=== PATIENT | female | born 1990 | race Caucasian/White ===

== ENCOUNTER 2016-11-29 10:05 | Emergency (ER) | payer BC ==
[~2016-11-29] VITALS: Ht 160 cm; Wt 62.2 kg
[~2016-11-29 10:05] MED LIST: PRENTAB26 PO
[2016-11-29 10:16] VITALS: TEMP 37; Ht 160 cm; Wt 62.2 kg
[2016-11-29] MEDS ORDERED: AMOX875T PO (11:02)
[2016-11-29 11:11] LABS: BASO % 0.3 %; BASO ABS # 0.02 K/uL (0-0.2); COMPLETE YES; EOS % 1.1 %; HEMATOCRIT 38.5 % (37-47); IG% 0.1 %; LYMPH % 27.8 %; LYMPH ABS # 2.04 K/uL (1.2-3.4); MEAN CELL VOLUME 92.1 fL (80-100); MEAN CORPUSCULAR HEMOGLOBIN 31.6 pg (25-34); MEAN CORPUSCULAR HGB CONC 34.3 g/dl (32-36); MEAN PLATELET VOLUME 10.5 fL (7.4-10.4); MONO % 4.2 %; NEUT % 66.5 %; PLATELET COUNT 261 K/uL (130-400); RED BLOOD COUNT 4.18 M/uL (4.2-5.4); WHITE BLOOD COUNT 7.35 K/uL (4.8-10.8)
[2016-11-29 11:19] LABS: PROTHROMBIN TIME (PATIENT) 10.8 SECONDS (9.0-12.0)
--- NOTE | 2016-11-29 11:26 | DIAGNOSTIC IMAGING REPORT ---
CHEST 2 VIEWS ROUTINE CLINICAL HISTORY: SOB, chest pain dyspnea COMPARISON STUDY: No previous studies for comparison. FINDINGS: The bones soft tissues and hemidiaphragms are normal. The cardiomediastinal silhouette is normal. The lungs are clear. The pulmonary vasculature is normal. IMPRESSION: Negative chest. Electronically signed by: Jose Mancini M.D. 11/29/2016 11:24 AM Dictated Date/Time: 11/29/2016 11:24 AM
[2016-11-29 11:36] LABS: ALT/SGPT 23 U/L (12-78); AST/SGOT 15 U/L (15-37); BLOOD UREA NITROGEN 12 mg/dl (7-18); BUN/CREATININE RATIO 15.1 (10-20); CALCIUM 8.5 mg/dl (8.5-10.1); CARBON DIOXIDE 26 mmol/L (21-32); CHLORIDE 106 mmol/L (98-107); CREATININE 0.78 mg/dl (0.60-1.20); GLUCOSE 112 mg/dl (70-99); POTASSIUM 3.5 mmol/L (3.5-5.1); SODIUM 141 mmol/L (136-145)
[2016-11-29 11:41] LABS: ALKALINE PHOSPHATASE 30 U/L (45-117)
--- NOTE | 2016-11-29 11:42 | DIAGNOSTIC IMAGING REPORT ---
Venous Doppler left leg LEFT VENOUS DOPP LOWER EXT UNILAT CLINICAL HISTORY: L thigh/leg pain - eval possible DVT pain. Edema. TECHNIQUE: Venous Doppler COMPARISON STUDY: None FINDINGS: Normal study IMPRESSION: Normal study Electronically signed by: Jose Mancini M.D. 11/29/2016 11:40 AM Dictated Date/Time: 11/29/2016 11:40 AM
[2016-11-29 11:47] VITALS: O2SAT 100
[2016-11-29] MEDS ORDERED: AZITTAB PO (12:26)
[2016-11-29 12:37] VITALS: BP 113/69; PULSE 84; O2SAT 98
--- NOTE | 2016-11-29 16:32 | EMERGENCY ROOM VISIT NOTE ---
History First contact with patient: 10:21 Chief Complaint: CHEST PAIN Stated Complaint: LEG, CHEST PAIN, SOB W/ACTIVITY Nursing Triage Summary: "Started to have leg pain in my left thigh. It started yesterday afternoon." Last night she developed chest pain and shortness of breath. She relates that she was at her physcian on Wednesday and her physician was concerned about her heart rate. Takes control. History of Present Illness The patient is a 26 year old female who presents to the Emergency Room with complaints of shortness of breath, chest tightness and left anterior thigh pain. The patient reports that she developed sinus and ear symptoms, along with shortness of breath, early this past week. She was seen by her PCP on , and provided a prescription for amoxicillin. She reports that the symptoms not improved. She denies any significant cough, back pain, abdominal pain, diarrhea or urinary symptoms. She reports that her thigh pain started yesterday afternoon. She does not recall injuring the leg. It is worse when she goes up and down steps. She was sent to the emergency department at the recommendation of her PCP if she had any persistent shortness of breath or chest pain. She rates her overall discomfort a 4 out of 10. Review of Systems HEENT: Denies dizziness, visual problems, hearing loss, tinnitus. Denies difficulty swallowing or oral lesions. PULMONARY: Denies significant cough, sputum production or hemoptysis. Otherwise see history of present illness with complaint of shortness of breath. CARDIOVASCULAR: Denies palpitations, dyspnea on exertion, orthopnea or peripheral edema. GASTROINTESTINAL: Denies diarrhea, constipation, nausea, vomiting, or abdominal pain. GENITOURINARY: Denies dysuria, frequency, urgency or nocturia. NEUROLOGIC: Denies history of epilepsy, CVA, TIA or chronic headaches. MUSCULOSKELETAL: Denies history of joint tenderness/swelling. SKIN: Denies rashes or lesions. PSYCHIATRIC: Denies history of depression or mental illness. HEMATOLOGIC: The patient denies any prior history of pulmonary emboli or deep vein thromboses. ENDOCRINE: Denies history of diabetes or thyroid disorders. Past Medical/Surgical History Medical Problems: (1) Hx Of Breast Malignancy Surgical Problems: (1) No history of previous surgery Family History FH: hypertension Social History Smoking Status: Never Smoker Alcohol Use: none Marital Status: in relationship Housing Status: lives with family, lives with significant other Occupation Status: employed Current/Historical Medications Scheduled Amoxicillin & Pot Clavulanate (Augmentin 875-125 mg), 1 TAB PO BID Azithromycin (Zithromax Z-Jessica), 0 PO UD Control Pills ( Control Pills), 1 TAB PO DAILY Allergies Coded Allergies: No Known Allergies (Unverified , 11/29/16) Physical Exam Vital Signs Date Time Temp Pulse Resp B/P Pulse Ox O2 Delivery O2 Flow Rate FiO2 11/29/16 12:37 84 16 113/69 98 11/29/16 11:48 84 11/29/16 11:48 79 20 125/80 98 Room Air 11/29/16 11:47 100 Room Air 11/29/16 11:15 99 Room Air 11/29/16 10:16 37.0 84 20 144/88 98 Room Air Pain Rating (0-10): 4.0 Physical Exam CONSTITUTIONAL: Healthy and well nourished. Alert and oriented X 3 with positive affect. Patient does not appear in any acute distress. HEENT: Normocephalic, atraumatic. Pupils equal, round and reactive. Ears and nares are clear. No scleral icterus or conjunctival pallor. NECK: Full active range of motion without discomfort. No JVD or carotid bruits. RESPIRATORY: Clear to auscultation bilaterally with no wheezing, crackles, rhonchi or stridor. CARDIOVASCULAR: Regular rate and rhythm with no murmurs, rubs or gallops. GASTROINTESTINAL: Bowel sounds present in all quadrants. Soft and nontender to palpation. No obvious hepatosplenomegaly. Negative CVA tenderness. MUSCULOSKELETAL: Examination shows mild tenderness to palpation of the anterior thigh. No obvious edema or ecchymosis noted. Negative logroll. Negative straight leg raise. Ankle plantar/dorsiflexion strength is 5 out of 5 and symmetric bilaterally. Pedal pulses are intact. INTEGUMENTARY: No rash or other significant dermatologic conditions noted. NEUROLOGIC: Left lower extremity is sensory intact. Medical Decision & Procedures ER Provider Diagnostic Interpretation: My interpretation of an ECG shows a normal sinus rhythm of [address] elevation. 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 My interpretation of a two-view chest x-ray does not show any consolidations, pneumothorax or cardiomegaly. Radiologist report is as follows: CHEST 2 VIEWS ROUTINE CLINICAL HISTORY: SOB, chest pain dyspnea COMPARISON STUDY: No previous studies for comparison. FINDINGS: The bones soft tissues and hemidiaphragms are normal. The cardiomediastinal silhouette is normal. The lungs are clear. The pulmonary vasculature is normal. IMPRESSION: Negative chest. A left lower extremity ultrasound does not show any evidence for pain thrombosis. Radiologist report is as follows: Venous Doppler left leg LEFT VENOUS DOPP LOWER EXT UNILAT CLINICAL HISTORY: L thigh/leg pain - eval possible DVT pain. Edema. TECHNIQUE: Venous Doppler COMPARISON STUDY: None FINDINGS: Normal study IMPRESSION: Normal study Laboratory Results 11/29/16 10:55 Red Blood Count 4.18, Mean Corpuscular Volume 92.1, Mean Corpuscular Hemoglobin 31.6, Mean Corpuscular Hemoglobin Concent 34.3, Mean Platelet Volume 10.5, Neutrophils (%) (Auto) 66.5, Lymphocytes (%) (Auto) 27.8, Monocytes (%) (Auto) 4.2, Eosinophils (%) (Auto) 1.1, Basophils (%) (Auto) 0.3, Neutrophils # (Auto) 4.89, Lymphocytes # (Auto) 2.04, Monocytes # (Auto) 0.31, Eosinophils # (Auto) 0.08, Basophils # (Auto) 0.02 11/29/16 10:55 Test 11/29/16 10:55 White Blood Count 7.35 K/uL (4.8-10.8) Red Blood Count 4.18 M/uL (4.2-5.4) Hemoglobin 13.2 g/dL (12.0-16.0) Hematocrit 38.5 % (37-47) Mean Corpuscular Volume 92.1 fL (80-100) Mean Corpuscular Hemoglobin 31.6 pg (25-34) Mean Corpuscular Hemoglobin Concent 34.3 g/dl (32-36) Platelet Count 261 K/uL (130-400) Mean Platelet Volume 10.5 fL (7.4-10.4) Neutrophils (%) (Auto) 66.5 % Lymphocytes (%) (Auto) 27.8 % Monocytes (%) (Auto) 4.2 % Eosinophils (%) (Auto) 1.1 % Basophils (%) (Auto) 0.3 % Neutrophils # (Auto) 4.89 K/uL (1.4-6.5) Lymphocytes # (Auto) 2.04 K/uL (1.2-3.4) Monocytes # (Auto) 0.31 K/uL (0.11-0.59) Eosinophils # (Auto) 0.08 K/uL (0-0.5) Basophils # (Auto) 0.02 K/uL (0-0.2) RDW Standard Deviation 40.0 fL (36.4-46.3) RDW Coefficient of Variation 11.8 % (11.5-14.5) Immature Granulocyte % (Auto) 0.1 % Immature Granulocyte # (Auto) 0.01 K/uL (0.00-0.02) Prothrombin Time 10.8 SECONDS (9.0-12.0) Prothromb Time International Ratio 1.0 (0.9-1.1) Activated Partial Thromboplast Time 25.6 SECONDS (21.0-31.0) Partial Thromboplastin Ratio 1.0 D-Dimer 310 ug/L FEU (0-500) Anion Gap 9.0 mmol/L (3-11) Est Creatinine Clear Calc Drug Dose 91.2 ml/min Estimated GFR () 122.5 Estimated GFR (Non- 105.7 BUN/Creatinine Ratio 15.1 (10-20) Calcium Level 8.5 mg/dl (8.5-10.1) Total Bilirubin 0.3 mg/dl (0.2-1) Direct Bilirubin < 0.1 mg/dl (0-0.2) Aspartate Amino Transf (AST/SGOT) 15 U/L (15-37) Alanine Aminotransferase (ALT/SGPT) 23 U/L (12-78) Alkaline Phosphatase 30 U/L (45-117) Total Creatine Kinase 84 U/L (26-192) Troponin I < 0.015 ng/ml (0-0.045) Total Protein 7.3 gm/dl (6.4-8.2) Albumin 3.4 gm/dl (3.4-5.0) Lipase 129 U/L (73-393) ED Course Patient history and physical exam were performed. Nurse's notes were reviewed. The patient does not appear in any acute distress on exam. IV access was established, and labs were drawn. An ECG, two-view chest x-ray and left lower extremity venous ultrasound did not show any acute findings. Review of labs showed a normal d-dimer and troponin. Electrolytes and CBC are also normal. The case was also discussed with Dr. Reinoso, ED attending physician, who agrees with workup and plan of care. The patient was also advised of her normal workup at this point. She was instructed to follow-up closely with her family doctor within the next 2-3 days for reevaluation. Return to the emergency department for any progressively worsening symptoms. Because the patient did have preceding respiratory symptoms with current shortness of breath , I did elect to treat her with a prescription for Zithromax. The patient was happy with plan of care, voiced understanding of all discharge instructions, and denied any pain or shortness of breath at the time of discharge. Medical Decision The patient presents to the emergency department with complaint of shortness of breath and left 5 pain. Her family doctor recommended that she come to the emergency department for evaluation of a possible DVT or pulmonary embolus. Her workup today is not suggestive of these conditions. She has a normal d- dimer and troponin. Venous ultrasound of the left lower extremity was normal. She has no abnormal labs today. Chest x-ray does not show any evidence for consolidation. Because the patient did have preceding upper respiratory symptoms consistent with a viral upper respiratory infection, I did elect to cover her with Zithromax antibiotics. I do feel that the patient is stable for outpatient evaluation and follow-up. She was advised to return for any worsening symptoms. Because the venous ultrasound of the left lower extremity was normal, I suspect a musculotendinous injury Impression Primary Impression: Shortness of breath Additional Impression: Left thigh pain Departure Information Dispostion Home / Self-Care Condition GOOD Prescriptions Azithromycin (ZITHROMAX Z-JESSICA) 250 Mg Tab 0 PO UD, #1 PKT 2 TABS DAY 1, THEN 1 TAB DAILY FOR 4 DAYS Prov: Jose Armando Fuller PA 11/29/16 Forms HOME CARE DOCUMENTATION FORM, IMPORTANT VISIT INFORMATION Patient Instructions My [facility] Additional Instructions Take Zithromax antibiotics as prescribed. Follow-up with your family doctor for recheck in 2-3 days. Return to the emergency department for any progressively worsening symptoms. Problem Qualifiers
[2016-12-02] MEDS ORDERED: BCPILLS PO (11:02)
== END 2016-11-29 12:42 | disposition home or self-care (01) ==
LOC: C.EDB 10:06 → C.EDC 12:42
DX: R06.02 Shortness of breath (principal); M79.652 Pain in left thigh; Z85.3 Personal history of malignant neoplasm of breast

== ENCOUNTER → 2016-12-01 | Outpatient (CLI) | payer BC ==
[~2016-12-01] MED LIST changes: +AMOX875T PO; +AZITTAB PO; +BCPILLS PO; +CYCL5TAB PO; +PRED20TA2 PO; -PRENTAB26 PO
--- NOTE | 2016-12-01 14:36 | DIAGNOSTIC IMAGING REPORT ---
LEFT FEMUR 3 VIEWS CLINICAL HISTORY: Left thigh pain. No reported history of trauma. FINDINGS: AP, frog-leg, and lateral views of the left femur are obtained. No prior studies are available for comparison at the time of dictation. The skeletal structures are well mineralized. There is no radiographic evidence of left femoral fracture. The visualized left bony pelvis appears intact. The hip and knee joints appear maintained. The overlying soft tissues are within normal limits. Calcified phleboliths are present in the left hemipelvis. IMPRESSION: Unremarkable radiographic assessment of the left femur. Electronically signed by: Trace Noguera M.D. 12/01/2016 2:34 PM Dictated Date/Time: 12/01/2016 2:33 PM
[2016-12-01 15:25] LABS: C-REACTIVE PROTEIN < 0.29 mg/dl (0-0.29)
== END | disposition home or self-care (01) ==
LOC: C.RAD 14:01
PROVIDERS: ATTEND Student in an Organized Health Care Education/Training Program
DX: M79.605 Pain in left leg (principal)

== ENCOUNTER 2016-12-02 14:37 | Emergency (ER) | payer BC ==
[~2016-12-02] VITALS: Ht 160 cm; Wt 62.9 kg
[~2016-12-02 14:37] MED LIST changes: -CYCL5TAB PO; -PRED20TA2 PO
[2016-12-02 14:41] VITALS: TEMP 36.9; Ht 160 cm; Wt 62.9 kg
--- NOTE | 2016-12-02 15:14 | EMERGENCY ROOM VISIT NOTE ---
History Report prepared by Janina: Stan Ludwig Under the Supervision of: Dr. Laura Hercules M.D. First contact with patient: 14:44 Chief Complaint: NEURO SYMPTOMS Stated Complaint: LEG PAIN, NUMBNESS, TINGLING History of Present Illness The patient is a 26 year old female who presents to the Emergency Room with complaints of persistent neuro symptoms that started around a week ago. She notes that she was here 3 days ago with left leg pain and shortness of breath, and she had testing for blood clots, and nothing was found. The patient has continued to have left leg pain, so she went to the [facility] walk-in clinic yesterday, and they did not know what was happening. The patient was sent for additional blood work and an x-ray of her upper left leg, all of which were negative. She has an ultrasound ordered for tomorrow morning. She describes the leg pain as a "tooth ache". She was climbing up a pickup truck today, and she noticed tingling and numbness from her left knee down. The patient also notes a lump the size of her hand in her left thigh. She tried to go to work this morning, but she says her left leg pain worsened. She then had an episode of dizziness and lightheadedness, in addition to sweating. She felt like she couldn't breathe, and she continues to feel like she has to yawn constantly. The patient denies any back pain or loss of control of her bladder or bowels. She does take control pills. The patient does not smoke. Source of History: patient Onset: Around a week ago Position: other (global - neuro symptoms) Timing: other (persistent) Associated Symptoms: + SOB, + diaphoresis, No back pain Note: Associated symptoms: Left leg pain, tingling/numbness from left knee down, lump size of hand in left thigh, episode of dizziness/lightheadedness. Denies loss of control of bladder or bowels. Review of Systems See HPI for pertinent positives & negatives. A total of 10 systems reviewed and were otherwise negative. Past Medical & Surgical Medical Problems: (1) Hx Of Breast Malignancy Surgical Problems: (1) No history of previous surgery Family History FH: hypertension Social History Smoking Status: Never Smoker Alcohol Use: none Marital Status: in relationship Housing Status: lives with family, lives with significant other Occupation Status: employed Current/Historical Medications Scheduled Azithromycin (Zithromax Z-Rico), 0 PO UD Control Pills ( Control Pills), 1 TAB PO DAILY Prednisone (Prednisone Tab), 40 MG PO DAILY Scheduled PRN Cyclobenzaprine Hcl (Flexeril), 5 MG PO TID PRN for Muscle Spasms Allergies Coded Allergies: No Known Allergies (Unverified , 11/29/16) Physical Exam Vital Signs Date Time Temp Pulse Resp B/P Pulse Ox O2 Delivery O2 Flow Rate FiO2 12/02/16 19:46 91 18 116/67 95 12/02/16 19:11 77 18 131/83 97 Room Air 12/02/16 17:55 80 16 127/73 12/02/16 17:22 76 12/02/16 17:13 77 18 114/74 100 Room Air 12/02/16 15:45 70 18 120/85 100 Room Air 12/02/16 14:41 36.9 91 18 117/75 99 Room Air Physical Exam Vital signs reviewed. General: Well-appearing 26 year old female, in no significant distress. HEENT: No scleral icterus, PERRLA, neck supple. Atraumatic. Cardiovascular: Regular rate and rhythm, no extra sounds. Pulmonary: Clear to auscultation bilaterally, normal work of breathing. Abdomen: Soft, nontender, nondistended, positive bowel sounds. Musculoskeletal: Atraumatic, no peripheral edema. Neurologic: Patient awake alert and oriented x 3, full strength in all 4 extremities. Cranial nerves 2 through 12 grossly intact. Some discomfort with left straight leg raise. +2 DTR patellar bilaterally Skin: Warm, dry, no rash Medical Decision & Procedures ER Provider Diagnostic Interpretation: X-ray results as stated below per my interpretation and radiologist interpretation. Other radiology results as stated below per my review and radiologist interpretation: L-SPINE MIN 4 VIEWS ROUTINE CLINICAL HISTORY: lumbar radiculopathy COMPARISON STUDY: No previous studies for comparison. FINDINGS: There are 5 lumbar type vertebral bodies present. No acute fractures or subluxations are visualized. There is a 36 mm sclerotic lesion involving the right medial iliac bone. IMPRESSION: 1. No fractures or subluxations identified 2. 36 mm sclerotic density within the right medial iliac bone Electronically signed by: Tristen Tobar M.D. 12/02/2016 4:23 PM Dictated Date/Time: 12/02/2016 4:22 PM MRI LUMBAR SPINE W/O CONTRAST CLINICAL HISTORY: LLE pain, radiculopathy. LEFT LOWER EXTREMITY RADICULOPATHY. TECHNIQUE: Sagittal and axial T1, T2 and STIR images were obtained. COMPARISON STUDY: Conventional radiographic study dated December 02, 2016 OBSERVATIONS: There is a sclerotic lesion within the right medial iliac bone, likely representing a bone island. L1-2: No disc protrusions or extrusions. No evidence of spinal canal or neural foraminal compromise. L2-3: No disc protrusions or extrusions. No evidence of spinal canal or neural foraminal compromise. L3-4: No disc protrusions or extrusions. No evidence of spinal canal or neural foraminal compromise. L4-5: No disc protrusions or extrusions. No evidence of spinal canal or neural foraminal compromise. L5-S1: No disc protrusions or extrusions. No evidence of spinal canal or neural foraminal compromise. The conus medullaris and cauda equina appear normal. IMPRESSION: 1. No disc herniations identified 2. No evidence of spinal or foraminal stenosis. Electronically signed by: Tristen Tobar M.D. 12/02/2016 7:19 PM Dictated Date/Time: 12/02/2016 7:15 PM Laboratory Results 12/02/16 15:30 Red Blood Count 4.03, Mean Corpuscular Volume 92.3, Mean Corpuscular Hemoglobin 32.0, Mean Corpuscular Hemoglobin Concent 34.7, Mean Platelet Volume 10.7, Neutrophils (%) (Auto) 56.7, Lymphocytes (%) (Auto) 34.9, Monocytes (%) (Auto) 6.9, Eosinophils (%) (Auto) 1.0, Basophils (%) (Auto) 0.2, Neutrophils # (Auto) 5.52, Lymphocytes # (Auto) 3.40, Monocytes # (Auto) 0.67, Eosinophils # (Auto) 0.10, Basophils # (Auto) 0.02 12/02/16 15:30 Test 12/02/16 15:30 12/02/16 15:45 White Blood Count 9.74 K/uL (4.8-10.8) Red Blood Count 4.03 M/uL (4.2-5.4) Hemoglobin 12.9 g/dL (12.0-16.0) Hematocrit 37.2 % (37-47) Mean Corpuscular Volume 92.3 fL (80-100) Mean Corpuscular Hemoglobin 32.0 pg (25-34) Mean Corpuscular Hemoglobin Concent 34.7 g/dl (32-36) Platelet Count 305 K/uL (130-400) Mean Platelet Volume 10.7 fL (7.4-10.4) Neutrophils (%) (Auto) 56.7 % Lymphocytes (%) (Auto) 34.9 % Monocytes (%) (Auto) 6.9 % Eosinophils (%) (Auto) 1.0 % Basophils (%) (Auto) 0.2 % Neutrophils # (Auto) 5.52 K/uL (1.4-6.5) Lymphocytes # (Auto) 3.40 K/uL (1.2-3.4) Monocytes # (Auto) 0.67 K/uL (0.11-0.59) Eosinophils # (Auto) 0.10 K/uL (0-0.5) Basophils # (Auto) 0.02 K/uL (0-0.2) RDW Standard Deviation 40.6 fL (36.4-46.3) RDW Coefficient of Variation 11.9 % (11.5-14.5) Immature Granulocyte % (Auto) 0.3 % Immature Granulocyte # (Auto) 0.03 K/uL (0.00-0.02) Anion Gap 10.0 mmol/L (3-11) Est Creatinine Clear Calc Drug Dose 114.7 ml/min Estimated GFR () 141.6 Estimated GFR (Non- 122.2 BUN/Creatinine Ratio 17.6 (10-20) Calcium Level 8.7 mg/dl (8.5-10.1) Urine Color YELLOW Urine Appearance CLOUDY (CLEAR) Urine pH 7.5 (4.5-7.5) Urine Specific [place] 1.022 (1.000-1.030) Urine Protein NEG (NEG) Urine Glucose (UA) NEG (NEG) Urine Ketones NEG (NEG) Urine Occult Blood NEG (NEG) Urine Nitrite NEG (NEG) Urine Bilirubin NEG (NEG) Urine Urobilinogen NEG (NEG) Urine Leukocyte Esterase SMALL (NEG) Urine WBC (Auto) 10-30 /hpf (0-5) Urine RBC (Auto) 0-4 /hpf (0-4) Urine Hyaline Casts (Auto) 5-10 /lpf (0-5) Urine Epithelial Cells (Auto) >30 /lpf (0-5) Urine Bacteria (Auto) 1+ (NEG) Urine Renal Epithelial Cells /lpf (0-5) Date/Time Source Procedure Growth Status 12/02/16 15:45 Urine , Clean Catch Urine Culture - Final Gardnerella-Like Bacilli Complete Laboratory results per my review. Medications Administered Medications (Trade) Dose Ordered Sig/Salima Route Start Time Stop Time Status Last Admin Dose Admin Methylprednisolone Sodium Succinate (Solu-Medrol IV) 125 mg NOW STAT IV 12/02/16 15:17 12/02/16 15:19 DC 12/02/16 15:40 125 MG Morphine Sulfate (MoRPHine SULFATE INJ) 2 mg NOW STAT IV 12/02/16 15:17 12/02/16 15:20 DC 12/02/16 15:41 2 MG Cyclobenzaprine HCl (Flexeril Tab) 5 mg NOW STAT PO 12/02/16 15:17 12/02/16 15:20 DC 12/02/16 15:41 5 MG ED Course 1450: Past medical records reviewed. The patient was evaluated in room B12B. A complete history and physical examination was performed. 1517: Ordered Flexeril Tab 5 mg PO, Morphine Sulfate Inj 2 mg IV, Solu-Medrol IV 125 mg IV. 1805: I reevaluated the patient and she is going to get her MRI. 3: I reevaluated the patient and she is resting comfortably. The patient verbally expressed understanding and agreement of the treatment plan. The patient will be discharged Medical Decision Differential diagnoses include: lumbar radiculopathy, DVT, muscular strain, hematoma, knee sprain, bony fracture. This pt was evaluated and appeared to be in no distress. IV access was obtained and lab work was drawn. Lumbar XR were performed and are negative. Pt has now been in the ED twice and to her PCP for evaluation. The pain continues in the Left thigh and XR femur and dopplers are negative for DVT. MRI lumbar spine was performed and is essentially negative for acute pathology. Pt was medicated with IV solu-medral, morphine and flexeril in the ED. She was d/c with prednisone and flexeril. She will f.u with PCP this week and return to the ED for worsening of symptoms or any medical concerns. Impression Primary Impression: Left lumbar radiculopathy Scribe Attestation The scribe's documentation has been prepared under my direction and personally reviewed by me in its entirety. I confirm that the note above accurately reflects all work, treatment, procedures, and medical decision making performed by me. Departure Information Dispostion Home / Self-Care Prescriptions Cyclobenzaprine Hcl (FLEXERIL) 5 Mg Tab 5 MG PO TID Y for Muscle Spasms, #21 TAB Prov: Laura Hercules M.D. 12/02/16 Prednisone (Prednisone Tab) 20 Mg Tab 40 MG PO DAILY for 4 Days, #8 TAB Prov: Laura Hercules M.D. 12/02/16 Referrals Itzel Hodges MD (PCP) Forms HOME CARE DOCUMENTATION FORM, IMPORTANT VISIT INFORMATION, WORK / SCHOOL INSTRUCTIONS Patient Instructions My [facility] Additional Instructions Diagnosis: Left lumbar radiculopathy Prednisone 40 mg daily for 4 more days. Flexeril 5 mg 3 times daily as needed. Tylenol 650 mg every 6 hours as needed for pain. Warm compresses and gentle stretching. Follow-up with your physician this week for reevaluation and return to the ER for worsening of symptoms or any medical concerns.
[2016-12-02] MEDS ORDERED: CYCLOBENZAPRINE HCL 10 MG TAB PO STA (15:17)
[2016-12-02] MEDS ORDERED: MoRPHine SULFATE 2 MG/ML CARP IV STA (15:17)
[2016-12-02] MEDS ORDERED: METHYLPREDNISOLONE 125 MG VIAL IV STA (15:17)
[2016-12-02 16:05] LABS: BASO % 0.2 %; BASO ABS # 0.02 K/uL (0-0.2); COMPLETE YES; HEMATOCRIT 37.2 % (37-47); IG% 0.3 %; LYMPH % 34.9 %; MEAN CELL VOLUME 92.3 fL (80-100); MEAN CORPUSCULAR HGB CONC 34.7 g/dl (32-36); MEAN PLATELET VOLUME 10.7 fL (7.4-10.4); MONO % 6.9 %; NEUT % 56.7 %; PLATELET COUNT 305 K/uL (130-400); RED BLOOD COUNT 4.03 M/uL (4.2-5.4); WHITE BLOOD COUNT 9.74 K/uL (4.8-10.8)
[2016-12-02 16:15] LABS: URINE APPEARANCE CLOUDY (CLEAR); URINE BILIRUBIN NEG (NEG); URINE COLOR YELLOW; URINE EPITHELIAL CELL AUTO >30 /lpf (0-5); URINE NITRITE NEG (NEG); URINE PH 7.5 (4.5-7.5); URINE SPECIFIC GRAVITY 1.022 (1.000-1.030); UROBILINOGEN NEG (NEG); ZZUR CULT IF INDIC CLEAN CATCH YES
[2016-12-02 16:25] LABS: BUN/CREATININE RATIO 17.6 (10-20); CALCIUM 8.7 mg/dl (8.5-10.1); CREATININE 0.67 mg/dl (0.60-1.20); POTASSIUM 3.4 mmol/L (3.5-5.1)
--- NOTE | 2016-12-02 16:25 | DIAGNOSTIC IMAGING REPORT ---
L-SPINE MIN 4 VIEWS ROUTINE CLINICAL HISTORY: lumbar radiculopathy COMPARISON STUDY: No previous studies for comparison. FINDINGS: There are 5 lumbar type vertebral bodies present. No acute fractures or subluxations are visualized. There is a 36 mm sclerotic lesion involving the right medial iliac bone. IMPRESSION: 1. No fractures or subluxations identified 2. 36 mm sclerotic density within the right medial iliac bone Electronically signed by: Tristen Tobar M.D. 12/02/2016 4:23 PM Dictated Date/Time: 12/02/2016 4:22 PM
[2016-12-02 16:29] LABS: MANUAL MICROSCOPIC REQUIRED? NO; REVIEW REQ? YES
--- NOTE | 2016-12-02 19:20 | DIAGNOSTIC IMAGING REPORT ---
MRI LUMBAR SPINE W/O CONTRAST CLINICAL HISTORY: LLE pain, radiculopathy. LEFT LOWER EXTREMITY RADICULOPATHY. TECHNIQUE: Sagittal and axial T1, T2 and STIR images were obtained. COMPARISON STUDY: Conventional radiographic study dated December 02, 2016 OBSERVATIONS: There is a sclerotic lesion within the right medial iliac bone, likely representing a bone island. L1-2: No disc protrusions or extrusions. No evidence of spinal canal or neural foraminal compromise. L2-3: No disc protrusions or extrusions. No evidence of spinal canal or neural foraminal compromise. L3-4: No disc protrusions or extrusions. No evidence of spinal canal or neural foraminal compromise. L4-5: No disc protrusions or extrusions. No evidence of spinal canal or neural foraminal compromise. L5-S1: No disc protrusions or extrusions. No evidence of spinal canal or neural foraminal compromise. The conus medullaris and cauda equina appear normal. IMPRESSION: 1. No disc herniations identified 2. No evidence of spinal or foraminal stenosis. Electronically signed by: Tristen Tobar M.D. 12/02/2016 7:19 PM Dictated Date/Time: 12/02/2016 7:15 PM
[2016-12-02] MEDS ORDERED: CYCL5TAB PO (19:37)
[2016-12-02] MEDS ORDERED: PRED20TA2 PO (19:37)
[2016-12-02 19:46] VITALS: BP 116/67; PULSE 91; O2SAT 95
== END 2016-12-02 19:46 | disposition home or self-care (01) ==
LOC: C.EDB 14:41
DX: M54.16 Radiculopathy, lumbar region (principal); Z85.3 Personal history of malignant neoplasm of breast; Z79.3 Long term (current) use of hormonal contraceptives; Z82.49 Family history of ischemic heart disease and other diseases of the circulatory system

== ENCOUNTER → 2016-12-03 | Outpatient (CLI) | payer BC ==
[~2016-12-03] MED LIST changes: -AMOX875T PO; +CYCL5TAB PO; +PRED20TA2 PO
--- NOTE | 2016-12-03 08:52 | DIAGNOSTIC IMAGING REPORT ---
Ultrasound left thigh LEFT EXTREMITY NONVASCULAR LIMITED CLINICAL HISTORY: LT THIGH PAIN,NUMBNESS,POSSIBLE SOFT TISSUE ABN TECHNIQUE: Pain COMPARISON STUDY: None FINDINGS: Normal ultrasound left thigh IMPRESSION: Normal ultrasound left thigh Electronically signed by: Jose Mancini M.D. 12/03/2016 8:50 AM Dictated Date/Time: 12/03/2016 8:48 AM
== END | disposition home or self-care (01) ==
LOC: C.ULTR 08:20
PROVIDERS: ATTEND Student in an Organized Health Care Education/Training Program
DX: M79.606 Pain in leg, unspecified (principal)

== ENCOUNTER → 2016-12-08 | Outpatient (CLI) | payer BC ==
[~2016-12-08] MED LIST changes: -PRED20TA2 PO
[2016-12-08 14:28] LABS: LYME DISEASE AB IGG NEG (NEG); LYME DISEASE AB IGM NEG (NEG)
== END | disposition home or self-care (01) ==
LOC: C.LAB 12:06
PROVIDERS: ATTEND Family Medicine
DX: M79.606 Pain in leg, unspecified (principal); R20.2 Paresthesia of skin

== ENCOUNTER → 2016-12-14 | Outpatient (CLI) | payer BC ==
[~2016-12-14] MED LIST changes: -AZITTAB PO; -CYCL5TAB PO; +GADAVIST IV PRN
--- NOTE | 2016-12-15 07:44 | DIAGNOSTIC IMAGING REPORT ---
MRI OF THE BRAIN WITHOUT AND WITH IV CONTRAST CLINICAL HISTORY: Leg pain and numbness. Paresthesias. COMPARISON STUDY: No previous studies for comparison. TECHNIQUE: Utilizing a 1.5 Gwendolyn magnet and dedicated coil, multiplanar, multiecho imaging of the brain was performed pre and postcontrast administration. IV administration of 6 mL of Gadavist contrast was uneventful. FINDINGS: There are no areas of restricted diffusion. No acute intracranial hemorrhage, midline shift or mass effect is present. Brain volume is normal. Ventricular system is normal. The basilar cisterns are patent. Flow-voids for the major intracranial vessels are present. No intracranial masses or pathologic enhancement is present. Prominent linear enhancement within the periventricular right frontal lobe could reflect a developmental venous anomaly, a finding of no clinical significance. No areas of signal abnormality are present. Calvarial signal is normal. Orbits and sinuses are unremarkable. There is no evidence for a Chiari 1 malformation. IMPRESSION: Unremarkable MRI of the brain. Electronically signed by: Dilan Varela M.D. 12/15/2016 7:42 AM Dictated Date/Time: 12/14/2016 3:50 PM
== END | disposition home or self-care (01) ==
LOC: C.MRI 14:51
PROVIDERS: ATTEND Family Medicine
DX: M79.606 Pain in leg, unspecified (principal); R20.2 Paresthesia of skin

== ENCOUNTER → 2016-12-22 | Outpatient (CLI) | payer BC ==
--- NOTE | 2016-12-22 16:28 | DIAGNOSTIC IMAGING REPORT ---
MRI THE THORACIC SPINE WITHOUT A WITH GADOLINIUM CLINICAL HISTORY: Lower leg paresthesias and left leg pain COMPARISON STUDY: No previous studies for comparison. FINDINGS: Imaging was performed in the sagittal and axial planes. Imaging was performed before and after the administration of 6 cc of intravenous Gadavist. There are no suspicious areas of marrow replacement. No intrinsic cord lesions are visualized. No disc herniations are evident. There is no significant canal narrowing. There is no pathologic enhancement. IMPRESSION: Normal study Electronically signed by: Tristen Tobar M.D. 12/22/2016 4:27 PM Dictated Date/Time: 12/22/2016 4:24 PM
== END | disposition home or self-care (01) ==
LOC: C.MRI 15:37
PROVIDERS: ATTEND Family Medicine
DX: M79.606 Pain in leg, unspecified (principal); R20.2 Paresthesia of skin

== ENCOUNTER → 2017-02-08 | Outpatient (CLI) | payer BC ==
[~2017-02-08] MED LIST changes: -GADAVIST IV PRN
== END | disposition home or self-care (01) ==
LOC: C.LAB 17:36
PROVIDERS: ATTEND Psychiatry & Neurology Neurology
DX: R20.0 Anesthesia of skin (principal)

== ENCOUNTER → 2017-02-23 | Outpatient (CLI) | payer BC ==
[~2017-02-23] MED LIST changes: +GADAVIST IV PRN
--- NOTE | 2017-02-23 14:50 | DIAGNOSTIC IMAGING REPORT ---
MRI pelvis PELVIS COMBO CLINICAL HISTORY: FEMORAL NEUROPATHY OF LEFT LOWER EXTREME TRY pain. Neuropathy. TECHNIQUE: Multi axial MRI acquisition pre and postcontrast administration COMPARISON STUDY: None FINDINGS: Signal characteristics the osseous structures indicate a 1 cm cyst at the lowest sacral segment. Osseous structures otherwise demonstrate a 1.5 x 1.0 cm focus of sclerosis medial right iliac wing. Sacral iliac joints are unremarkable. Sacral foramina are symmetric. There is no evidence for abnormal postcontrast enhancement. All remaining soft tissue structures are unremarkable. Sacral plexus is unremarkable. There is no evidence for an enhancing lesion or significant impingement. IMPRESSION: 1. No significant abnormality of the neural vascular plexus or sacrococcygeal complex. 2. 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 3. Benign bone island of the medial right iliac wing. 4. No evidence for abnormal postcontrast enhancement Electronically signed by: Jose Mancini M.D. 02/23/2017 2:48 PM Dictated Date/Time: 02/23/2017 2:41 PM
== END | disposition home or self-care (01) ==
LOC: C.MRI 13:13
PROVIDERS: ATTEND Psychiatry & Neurology Neurology
DX: G57.22 Lesion of femoral nerve, left lower limb (principal)

== ENCOUNTER → 2017-03-09 | Outpatient (CLI) | payer BC ==
[~2017-03-09] MED LIST changes: -GADAVIST IV PRN
== END | disposition home or self-care (01) ==
LOC: C.PAPS 07:48
PROVIDERS: ATTEND Obstetrics & Gynecology
DX: Z01.419 Encounter for gynecological examination (general) (routine) without abnormal findings (principal); Z11.51 Encounter for screening for human papillomavirus (HPV)

== ENCOUNTER 2024-11-16 19:35 | Inpatient (IN) ==
[2024-11-16] MEDS ORDERED: ACETAMINOPHEN 325 MG TAB PO PRN ×2 (20:10→21:53)
[2024-11-16] MEDS ORDERED: CALCIUM CARBONATE 500 MG CHEWABLE TAB PO PRN (20:10)
[2024-11-16] MEDS ORDERED: LIDOCAINE 1% LOCAL 20 ML VIAL INFIL PRN (20:10)
--- NOTE | 2024-11-16 20:23 | History & Physical Report ---
Date of Service November 16, 2024 Assessment & Plan (1) Encounter for supervision of normal intrauterine in multigravida, antepartum: Plan: IUP at term in labor requesting epidural analgesia anticipate vaginal Admission and Anticipated Discharge Date Admission Date: November 16, 2024 History of Present Illness Primary Care Provider: Chucho Stephenson Patient is a 34 yo female EDC2/25 who presents at 38 5/7 weeks in active labor. has been uncomplicated. GBS-negative/ Blood type A- positive Allergies Allergy/AdvReac Type Severity Reaction Status Date / Time amitriptyline AdvReac Unverified 11/13/24 14:30 Home Medications Medication Instructions Recorded Confirmed Type pantoprazole 20 mg tablet,delayed 20 mg PO DAILY 11/16/24 11/16/24 History release (Protonix) vits no.124-ferrous fum 1 tab DAILY 11/16/24 11/16/24 History 27 mg iron-folic acid 800 mcg tablet ( Vitamin) Patient History Medical History Chicken pox Shortness of breath Left thigh pain Headache (05/21/14) Blurred vision (05/21/14) Headache Vertigo Neuralgia LGSIL of cervix of undetermined significance Leg numbness Femoral neuropathy of left lower extremity Migraine Surgical History History of wisdom tooth extraction Family History Mother Hypertension Dyslipidemia Coronary heart disease Grandmother (Maternal) Dyslipidemia Father Coronary heart disease Heart disease Denies family history of Ovarian cancer Prostate cancer Breast cancer Colorectal cancer Social History Smoking Status: Never smoker Do You Dip or Chew Tobacco: No; Hx Alcohol Use: No Hx Substance Use: No Preferred Language: [place]al[place] Communication Ability: Effective Vest Tailor Required: No Beliefs That Will Affect Care: None marital status: Single marital status details: Danny Blackmon (31) [phone] Current Living Situation: Family and Significant Other Current Living Situation Comment: FOB and daughter current occupational status: employed current occupation: [employer] How many Children do You have: 1 Other Information That Helps Us Care for You: No Feels Safe at Home: Yes Safety Concerns: Feels Safe At This Time Assistive Devices: None Review of Systems All systems reviewed & are unremarkable except as noted in HPI & below Physical Exam Constitutional: WD/WN, vitals as above Psychiatric: A+Ox3, euthymic affect Genitourinary: OB Exam Abdomen: + vertex, + estimated weight (7-8 pounds) and + regular contractions (Q2 minutes) Manual OB Exam: + cervical dilation (4-5cm), + cervical effacement 100% and + station 0 OB Exam Monitor Tracing: + external FHT monitor used, + external uterine monitor used, + category I and + normal FHT variability Results & Data Vital Signs (Past 12 Hours) Vital Signs Temp Pulse Resp BP 11/16/24 19:59 87 145/92 H 11/16/24 19:48 97.5 F L 18 11/16/24 19:47 76 163/99 H Coding Level of Care Code 01978 INT INP/OBS CARE 140MIN Diagnoses Encounter for supervision of normal intrauterine in multigravida, antepartum Z34.80
[2024-11-16] MEDS: SODIUM CHLORIDE 0.9% 1,000 ML IV SCH (20:30)
[2024-11-16 20:46] LABS: Hematocrit (blood only) 37.1 % (37.0-47.0); Hemoglobin 12.4 g/dl (12.0-16.0); Mean Corpuscular Hemoglobin 30.8 pg (25.0-34.0); Mean Corpuscular Hgb Conc 33.4 g/dL (32.0-36.0); Mean Corpuscular Volume 92.3 fL (80.0-100.0); Mean Platelet Volume 11.4 fL (9.4-12.4); Platelet Count 203 K/uL (130-400); RDW Coefficient of Variation 12.8 % (11.5-14.5); RDW Standard Deviation 41.9 fL (36.4-46.3); Red Blood Count 4.02 M/uL (4.20-5.40); White Blood Count 15.08 K/ul (4.8-10.8)
[2024-11-16] MEDS ORDERED: fentANYL 2 MCG/ML BUPIVacaine 0.125%-NSS 100ML BAG EPI PRN (21:09)
[2024-11-16] MEDS ORDERED: LIDOCAINE 2% MPF LOCAL 5 ML VIAL EPI PRN (21:09)
[2024-11-16] MEDS ORDERED: NALBUPHINE HCL INJ 10 MG/ML AMP IV PRN (21:09)
[2024-11-16] MEDS ORDERED: SODIUM CHLORIDE 0.9% PF INJ 10 ML VIAL EPI PRN (21:09)
[2024-11-16] MEDS ORDERED: ePHEDrine sulfate 50 MG/ML AMP IV PRN (21:09)
[2024-11-16] MEDS ORDERED: diphenhydrAMINE 50 MG/ML VIAL IV PRN (21:09)
[2024-11-16] MEDS ORDERED: BUPIVACAINE 0.25% PF 30 ML VIAL EPI PRN (21:09)
[2024-11-16] MEDS ORDERED: NALOXONE HCL 0.4 MG/1 ML VIAL/CARP IV PRN (21:09)
[2024-11-16] MEDS ORDERED: fentaNYL citrate PF 100 MCG/2 ML VIAL EPI PRN (21:09)
[2024-11-16] MEDS ORDERED: ROPIVACAINE 0.5% PF 5 MG/ML 20 ML VIAL EPI PRN (21:09)
[2024-11-16] MEDS ORDERED: NALOXONE HCL 1 MG in SODIUM CHLORIDE 0.9% 1,000 ML IV PRN (21:09)
--- NOTE | 2024-11-16 21:09 | Anesthesiology Consultation ---
Date of Service November 16, 2024 Assessment & Plan Chart Review Chart Review: Acceptable Risk for Labor Epidural Consults Requested none History Height/Weight Height: 5 ft 3 in Weight: 76.204 kg Allergies Allergy/AdvReac Type Severity Reaction Status Date / Time amitriptyline AdvReac Unverified 11/13/24 14:30 Medications Home Medications Medication Instructions Recorded Confirmed Last Taken pantoprazole 20 mg tablet,delayed 20 mg PO DAILY 11/16/24 11/16/24 Unknown release (Protonix) vits no.124-ferrous fum 1 tab DAILY 11/16/24 11/16/24 Unknown 27 mg iron-folic acid 800 mcg tablet ( Vitamin) Active Medications Generic Name Dose Route Start Last Admin Trade Name Freq PRN Reason Stop Dose Admin Sodium Chloride 1,000 mls @ 50 mls/hr 11/16/24 21:00 11/16/24 21:03 Nss IV 11/17/24 20:59 50 mls/hr .Q20H MARIBEL Infusion Past Medical History Medical History Chicken pox Shortness of breath Left thigh pain Headache (05/21/14) Blurred vision (05/21/14) Headache Vertigo Neuralgia LGSIL of cervix of undetermined significance Leg numbness Femoral neuropathy of left lower extremity Migraine Past Family History Family History Mother Hypertension Dyslipidemia Coronary heart disease Grandmother (Maternal) Dyslipidemia Father Coronary heart disease Heart disease Denies family history of Ovarian cancer Prostate cancer Breast cancer Colorectal cancer Past Surgical History Surgical History History of wisdom tooth extraction Social History Smoking Status: Never smoker Do You Dip or Chew Tobacco: No Hx Alcohol Use: No Hx Substance Use: No substance use type: does not use Physical Exam Vital Signs Last Vital Signs Temp 36.4 C L 11/16/24 19:48 Pulse 88 11/16/24 21:06 Resp 18 11/16/24 19:48 BP 145/92 H 11/16/24 19:59 Pulse Ox 100 11/16/24 21:06 Testing Laboratory Results 11/16/24 20:29
[2024-11-16] MEDS: fentANYL 2 MCG/ML BUPIVacaine 0.125%-NSS 100ML BAG ONE (21:30)
[2024-11-16] MEDS: OXYTOCIN 30 UNITS/NSS 30 UNITS/500 ML BAG IV PRN (21:42)
[2024-11-16] MEDS: LIDOCAINE 2%/EPINEPHRINE 1:200,000 20 ML PF EPI STA (21:51)
--- NOTE | 2024-11-16 21:51 | Anesthesia Procedure Note ---
Date of Service November 16, 2024 Anesthesia Post Epidural Note Vital Signs Vital Signs: Temp Pulse Resp BP Pulse Ox 36.4 C L 102 H 18 125/61 99 11/16/24 19:48 11/16/24 21:46 11/16/24 19:48 11/16/24 21:44 11/16/24 21:46 Notes Mental Status: alert / awake / arousable and participated in evaluation Nausea / Vomiting: adequately controlled Pain: adequately controlled Airway Patency, RR, SpO2: stable & adequate BP & HR: stable & adequate Hydration State: stable & adequate Neuraxial Anesthesia: was administered Anesthetic Complications: no major complications apparent and Pt Satisfied with anesthetic care Epidural: Removed without complications and With tip intact
[2024-11-16] MEDS ORDERED: bisacodyL 10 MG SUPP PR PRN (21:53)
[2024-11-16] MEDS ORDERED: HYDROCORTISONE ACETATE 25 MG SUPP PR PRN (21:53)
[2024-11-16] MEDS ORDERED: OXYTOCIN 30 UNITS/NSS 30 UNITS/500 ML BAG IV PRN (21:53)
[2024-11-16] MEDS ORDERED: BENZOCAINE 20% SPRY 85 APPLN/85 GM CAN EXT PRN (21:53)
[2024-11-16] MEDS ORDERED: oxyCODONE/ACETAMINOPHEN 5mg/325mg TAB PO PRN (21:53)
[2024-11-16] MEDS: BUPIVACAINE 0.25% PF 30 ML VIAL ONE (23:08)
[2024-11-16] MEDS: fentaNYL citrate PF 100 MCG/2 ML VIAL ONE (23:08)
[2024-11-16] MEDS: ePHEDrine sulfate 50 MG/ML AMP ONE (23:08)
[2024-11-16] MEDS: BUPIVACAINE 0.25% PF 30 ML VIAL EPI STA (23:09)
[2024-11-16] MEDS: LIDOCAINE 2%/EPINEPHRINE 1:200,000 20 ML PF ONE (23:09)
[2024-11-16] MEDS: fentaNYL citrate PF 100 MCG/2 ML VIAL EPI STA (23:09)
[2024-11-16] MEDS: SODIUM CHLORIDE 0.9% PF INJ 10 ML VIAL EPI STA (23:09)
[2024-11-16] MEDS: SODIUM CHLORIDE 0.9% PF INJ 10 ML VIAL ONE (23:09)
[2024-11-16] MEDS: DIPHTHER/TETAN/PERTUS Vaccine (Tdap, Adol/Adult) 0.5mL IM ONE (23:09)
--- NOTE | 2024-11-16 23:54 | Delivery Summary ---
Vaginal Delivery Summary Date of Service November 16, 2024 Vaginal Delivery Summary [facility] Patient is a 34-year-old 2 para 1-0-0-1 female who presents at 38-5/7 weeks in active labor. She progressed quickly to full dilation but did get effective epidural analgesia prior to starting to push. Membranes ruptured for clear fluid with pushing. She pushed effectively over intact perineum for delivery of a viable female infant. After the head was delivered the rest the delivered without maternal effort. She was placed on the mother's abdomen for further attention and drying. She was vigorous crying moving all 4 limbs. After 1 minute the cord was clamped and cut. After cord blood was obtained the placenta was expressed intact with a three-vessel cord. bleeding was controlled with dilute Pitocin and fundal massage. Perineum was noted to be intact. QBL was 79 mL. Mother and infant were doing well after delivery. [facility] Vaginal Delivery Charge Delivery Type Details: [facility]
--- NOTE | 2024-11-17 06:59 | Hospitalist Progress Note ---
Date of Service November 17, 2024 Assessment & Plan (1) Encounter for assessment: Plan: Patient is PPD 1 s/p and doing well - Eating well, voiding well, ambulating well - vitals reviewed and within normal limits - pain well controlled with analgesics - OOB, ambulation, diet progression as tolerated - Blood type: A+, GBS neg, rubella equivocal - Plan to discharge tomorrow - After discharge, 6 week follow up with OBGYN Admission and Anticipated Discharge Date Admission Date: November 16, 2024 Subjective 34 yo post- day 1 s/p Ambulation: ambulating normally Voiding: no voiding problems Passing Gas:: Yes Diet Tolerance:: regular diet Lochia:: Small Feeding Type:: bottle feeding Current Pain Level:0/10 Resting comfortably this AM in NAD. Denies CHAPMAN, CP, SOB, N/V/D, LE pain/swelling. Physical Exam 2 Physical Exam: General: patient resting comfortably, NAD, non-toxic in appearance, answers questions appropriately. Skin: warm, dry, intact HEENT: NC/AT, anicteric sclera, conjunctiva without injection, moist mucus membranes. Heart: +S1/S2, regular, no m/r/g Lungs: equal air entry bilaterally, no rales/rhonchi/wheezes Abd: +BS, soft, NT/ND, uterine fundus firm at umbilicus Ext: warm, no clubbing/cyanosis or edema, Tomsa's neg. Neuro: nonfocal, speech intact, no facial droop, moving all extremities. Results & Data Results & Data Vital Signs (Past 12 Hours) Vital Signs Temp Pulse Pulse Resp BP BP Pulse Ox 11/17/24 05:25 130/77 11/17/24 04:10 37.3 C 78 18 142/83 H 100 11/17/24 00:40 37.2 C 89 18 133/83 99 11/17/24 00:40 11/16/24 23:50 16 11/16/24 23:50 82 137/88 11/16/24 23:35 88 134/93 11/16/24 23:20 18 11/16/24 23:20 99 H 129/87 11/16/24 23:05 83 118/76 11/16/24 22:50 36.7 C 18 11/16/24 22:50 100 H 118/73 11/16/24 22:35 18 11/16/24 22:35 104 H 116/71 11/16/24 22:20 16 11/16/24 22:20 106 H 114/71 11/16/24 22:11 113 H 95 11/16/24 22:08 103 H 118/66 11/16/24 22:06 109 H 100 11/16/24 22:05 18 11/16/24 22:01 105 H 99 11/16/24 21:57 112 H 90 11/16/24 21:56 115 H 95 11/16/24 21:51 100 11/16/24 21:51 112 H 11/16/24 21:51 115 H 93/52 L 11/16/24 21:50 18 11/16/24 21:46 102 H 99 11/16/24 21:44 104 H 125/61 11/16/24 21:41 110 H 99 11/16/24 21:36 99 H 99 11/16/24 21:31 100 H 100 11/16/24 21:26 87 99 11/16/24 21:24 74 146/77 H 11/16/24 21:21 88 98 11/16/24 21:17 93 H 149/75 H 11/16/24 21:16 90 100 11/16/24 21:11 88 100 11/16/24 21:06 88 100 11/16/24 21:01 86 100 11/16/24 19:59 87 145/92 H 11/16/24 19:48 36.4 C L 18 11/16/24 19:47 76 163/99 H O2 Del Method 11/17/24 05:25 11/17/24 04:10 Room Air 11/17/24 00:40 Room Air 11/17/24 00:40 Room Air 11/16/24 23:50 11/16/24 23:50 11/16/24 23:35 11/16/24 23:20 11/16/24 23:20 11/16/24 23:05 11/16/24 22:50 11/16/24 22:50 11/16/24 22:35 11/16/24 22:35 11/16/24 22:20 11/16/24 22:20 11/16/24 22:11 11/16/24 22:08 11/16/24 22:06 11/16/24 22:05 11/16/24 22:01 11/16/24 21:57 11/16/24 21:56 11/16/24 21:51 11/16/24 21:51 11/16/24 21:51 11/16/24 21:50 11/16/24 21:46 11/16/24 21:44 11/16/24 21:41 11/16/24 21:36 11/16/24 21:31 11/16/24 21:26 11/16/24 21:24 11/16/24 21:21 11/16/24 21:17 11/16/24 21:16 11/16/24 21:11 11/16/24 21:06 11/16/24 21:01 11/16/24 19:59 11/16/24 19:48 11/16/24 19:47 Resident Activity Tracking Resident Involvement: Resident Care Provided Care Provided: Adult Hospital Medicine
--- NOTE | 2024-11-17 07:07 | Obstetrical Progress Note ---
Date of Service November 17, 2024 Assessment & Plan (1) Encounter for assessment: Plan: Patient is PPD 1 s/p and doing well - Eating well, voiding well, ambulating well - vitals reviewed and within normal limits - pain well controlled with analgesics - OOB, ambulation, diet progression as tolerated - Blood type: A+, GBS neg, rubella immune - Plan to discharge tomorrow - After discharge, 6 week follow up with OBGYN Admission and Anticipated Discharge Date Admission Date: November 16, 2024 Supervising Physician Co-Signing Physician Notes Resident Physician Supervision Note: I interviewed and examined the patient. Discussed with Dr. Hernandez and agree with findings and plan as documented in the note. Any exceptions or clarifications are listed here: [None] Documented By: Carmen Valera MD, FACOG Subjective 34 yo post- day 1 s/p Ambulation: ambulating normally Voiding: no voiding problems Passing Gas:: Yes Diet Tolerance:: regular diet Lochia:: Small Feeding Type:: bottle feeding Current Pain Level: 0/10 Resting comfortably this AM in NAD. Denies CHAPMAN, CP, SOB, N/V/D, LE pain/swelling. Physical Exam Physical Exam: General: patient resting comfortably, NAD, non-toxic in appearance, answers questions appropriately. Skin: warm, dry, intact HEENT: NC/AT, anicteric sclera, conjunctiva without injection, moist mucus membranes. Heart: +S1/S2, regular, no m/r/g Lungs: equal air entry bilaterally, no rales/rhonchi/wheezes Abd: +BS, soft, NT/ND, uterine fundus firm at umbilicus Ext: warm, no clubbing/cyanosis or edema, Tomas's neg. Neuro: nonfocal, speech intact, no facial droop, moving all extremities. Results & Data Vital Signs (Past 12 Hours) Vital Signs Temp Pulse Pulse Resp BP BP Pulse Ox 11/17/24 05:25 130/77 11/17/24 04:10 37.3 C 78 18 142/83 H 100 11/17/24 00:40 37.2 C 89 18 133/83 99 11/17/24 00:40 11/16/24 23:50 16 11/16/24 23:50 82 137/88 11/16/24 23:35 88 134/93 11/16/24 23:20 18 11/16/24 23:20 99 H 129/87 11/16/24 23:05 83 118/76 11/16/24 22:50 36.7 C 18 11/16/24 22:50 100 H 118/73 11/16/24 22:35 18 11/16/24 22:35 104 H 116/71 11/16/24 22:20 16 11/16/24 22:20 106 H 114/71 11/16/24 22:11 113 H 95 11/16/24 22:08 103 H 118/66 11/16/24 22:06 109 H 100 11/16/24 22:05 18 11/16/24 22:01 105 H 99 11/16/24 21:57 112 H 90 11/16/24 21:56 115 H 95 11/16/24 21:51 100 11/16/24 21:51 112 H 11/16/24 21:51 115 H 93/52 L 11/16/24 21:50 18 11/16/24 21:46 102 H 99 11/16/24 21:44 104 H 125/61 11/16/24 21:41 110 H 99 11/16/24 21:36 99 H 99 11/16/24 21:31 100 H 100 11/16/24 21:26 87 99 11/16/24 21:24 74 146/77 H 11/16/24 21:21 88 98 11/16/24 21:17 93 H 149/75 H 11/16/24 21:16 90 100 11/16/24 21:11 88 100 11/16/24 21:06 88 100 11/16/24 21:01 86 100 11/16/24 19:59 87 145/92 H 11/16/24 19:48 36.4 C L 18 11/16/24 19:47 76 163/99 H O2 Del Method 11/17/24 05:25 11/17/24 04:10 Room Air 11/17/24 00:40 Room Air 11/17/24 00:40 Room Air 11/16/24 23:50 11/16/24 23:50 11/16/24 23:35 11/16/24 23:20 11/16/24 23:20 11/16/24 23:05 11/16/24 22:50 11/16/24 22:50 11/16/24 22:35 11/16/24 22:35 11/16/24 22:20 11/16/24 22:20 11/16/24 22:11 11/16/24 22:08 11/16/24 22:06 11/16/24 22:05 11/16/24 22:01 11/16/24 21:57 11/16/24 21:56 11/16/24 21:51 11/16/24 21:51 11/16/24 21:51 11/16/24 21:50 11/16/24 21:46 11/16/24 21:44 11/16/24 21:41 11/16/24 21:36 11/16/24 21:31 11/16/24 21:26 11/16/24 21:24 11/16/24 21:21 11/16/24 21:17 11/16/24 21:16 11/16/24 21:11 11/16/24 21:06 11/16/24 21:01 11/16/24 19:59 11/16/24 19:48 11/16/24 19:47 Resident Activity Tracking Resident Involvement: Resident Care Provided Care Provided: OB Delivery
[2024-11-17 07:11] LABS: Hemoglobin 11.5 g/dl (12.0-16.0); Mean Corpuscular Hemoglobin 30.8 pg (25.0-34.0); Mean Corpuscular Hgb Conc 33.8 g/dL (32.0-36.0); Mean Corpuscular Volume 91.2 fL (80.0-100.0); Mean Platelet Volume 11.5 fL (9.4-12.4); Platelet Count 187 K/uL (130-400); RDW Coefficient of Variation 12.8 % (11.5-14.5); RDW Standard Deviation 41.5 fL (36.4-46.3); Red Blood Count 3.73 M/uL (4.20-5.40); White Blood Count 16.93 K/ul (4.8-10.8)
[2024-11-17] MEDS: PRENATAL VITAMIN 1 TAB PO SCH (08:17)
[2024-11-17] MEDS: DOCUSATE SODIUM 100 MG CAP PO SCH (08:17)
[2024-11-17] MEDS: PANTOprazole 40 MG TAB PO SCH (09:16)
[2024-11-17] MEDS: IBUPROFEN 600 MG TAB PO PRN (12:09)
[2024-11-17 15:57] VITALS: PULSE 80; RESP 16
[2024-11-17 19:49] VITALS: BP 134/88; TEMP 98.6; O2SAT 98
[2024-11-17] MEDS: bisacodyL 5 MG TABEC PO SCH (20:59)
== END 2024-11-17 22:22 | disposition home or self-care (01) | DRG 807 ==
LOC: OPB 19:35 → 4S1 19:36 → 4E2 11-17 00:32